=== PATIENT | male | born 1990 | race Two or more races ===

== ENCOUNTER 2024-05-23 08:14 | Emergency (ER) | payer OTHER ==
[~2024-05-23] VITALS: Ht 160 cm; Wt 54.5 kg
[2024-05-23 08:21] VITALS: BP 121/77; PULSE 94; RESP 16; TEMP 98.1; O2SAT 98
[2024-05-23] MEDS: IBUPROFEN 600 MG TABLET PO ONE (09:49)
== END 2024-05-23 09:51 | disposition home or self-care (01) ==
LOC: EMS 08:16
DX: M79.18 Myalgia, other site (principal); G89.29 Other chronic pain; J45.909 Unspecified asthma, uncomplicated
CPT/HCPCS: 99282; Z7502; Z7610